=== PATIENT | female | born 1950 | race Caucasian/White ===

== ENCOUNTER 2017-01-11 07:05 | Day surgery (SDC) | payer MEDICARE, OTHER ==
[~2017-01-11] VITALS: Ht 175.3 cm; Wt 78.5 kg
[~2017-01-11 07:05] MED LIST: 0.9% Sodium Chloride 1,000 ML IV SCH; ETOD400T PO; MULT-1018 PO; Sodium Chloride LOK Flush 10 mL Syringe IV PRN; fentaNYL-PF 50 mCg/mL 2 mL Inj IVPUSH PRN
[2017-01-11 07:15] VITALS: BP 125/72; PULSE 61; RESP 12; O2SAT 99
[2017-01-11 08:24] VITALS: BP 109/60; PULSE 56; RESP 16; O2SAT 100
[2017-01-11 08:36] VITALS: BP 103/60; PULSE 50; RESP 16; O2SAT 100
[2017-01-11 08:46] VITALS: BP 107/61; PULSE 50; RESP 16; O2SAT 100
--- NOTE | 2017-01-11 08:59 | ENDO ---
[address] [address] ENDOSCOPY PROCEDURE PATIENT: ARASH CARLOS I : 1950 MR#: [id number] ADMIT: 01/11/2017 JOB ID: [id number] PRIMARY PROVIDER: Jamir Torres MD PROCEDURE: Colonoscopy. INDICATIONS: A 66-year-old female who reports who reports for colon cancer screening. EQUIPMENT: PCF-H180AL. SEDATION: Versed 3 mg and 75 mcg fentanyl. COMPLICATIONS: None identified. BOWEL PREP: Fair. PROCEDURE INFO: After the risks and benefits were explained, written and verbal informed consent was obtained. The patient was brought into the endoscopy suite and placed into the left lateral decubitus position. Sedation was achieved using the above-stated medications with the addition of oxygen via nasal cannula. A digital rectal examination was accomplished. No significant pathology appreciated. The scope was introduced and advanced to the cecum as identified by the appendiceal orifice and ileocecal valve. The scope was slowly withdrawn to carefully examine the mucosa for any defects or lesions. Retroflexed views were avoided. In the rectum multiple direct views were made through the dentate line for exclusion of pathology. The colon was decompressed. The scope removed from the patient who tolerated the procedure well. FINDINGS: No significant polyps, mass, lesions, or inflammatory features identified throughout. ENDOSCOPIC DIAGNOSES: Visually unremarkable colonoscopy. RECOMMENDATIONS: Repeat colonoscopy 10 years' time, sooner should symptoms warrant.
== END 2017-01-11 23:59 | disposition home or self-care (01) ==
LOC: END 07:05
PROVIDERS: ATTEND Internal Medicine Gastroenterology
DX: Z12.11 Encounter for screening for malignant neoplasm of colon (principal); G62.9 Polyneuropathy, unspecified
CPT/HCPCS: G0121; G0500; J7030